=== PATIENT | female | born 1965 | race Asian ===

== ENCOUNTER 2024-02-24 08:15 | Outpatient (CLI) | payer OTHER ==
[2024-02-24] MEDS ORDERED: Iopamidol 370 76% 100 ML VIAL ONE (10:07)
== END 2024-02-24 08:16 | disposition home or self-care (01) ==
LOC: CT 08:15
PROVIDERS: ATTEND Internal Medicine Hematology & Oncology
DX: C50.412 Malignant neoplasm of upper-outer quadrant of left female breast (principal); C50.811 Malignant neoplasm of overlapping sites of right female breast; C50.812 Malignant neoplasm of overlapping sites of left female breast; J98.4 Other disorders of lung; K76.9 Liver disease, unspecified; K86.2 Cyst of pancreas
CPT/HCPCS: 36415; 70470; 71260; 74177; 82565; Q9967

== ENCOUNTER 2024-03-03 08:46 | Outpatient (CLI) | payer BC, OTHER | END 2024-03-03 08:47 | disposition home or self-care (01) | LOC: RAD 08:46 | PROVIDERS: ATTEND Surgery | DX: C50.412 Malignant neoplasm of upper-outer quadrant of left female breast (principal) | CPT/HCPCS: 78306; A9503 ==

== ENCOUNTER 2024-03-09 08:45 | Outpatient (CLI) | payer BC | END 2024-03-09 08:46 | disposition home or self-care (01) | LOC: PET 08:45 | PROVIDERS: ATTEND Internal Medicine Hematology & Oncology | DX: C50.811 Malignant neoplasm of overlapping sites of right female breast (principal); C50.812 Malignant neoplasm of overlapping sites of left female breast; C79.51 Secondary malignant neoplasm of bone; C78.1 Secondary malignant neoplasm of mediastinum; C78.00 Secondary malignant neoplasm of unspecified lung | CPT/HCPCS: 78815; A9552 ==

== ENCOUNTER 2024-06-03 10:15 | Outpatient (CLI) | payer BC | END 2024-06-03 10:16 | disposition home or self-care (01) | LOC: PET 10:15 | PROVIDERS: ATTEND Internal Medicine Hematology & Oncology | DX: C50.811 Malignant neoplasm of overlapping sites of right female breast (principal); C50.812 Malignant neoplasm of overlapping sites of left female breast; C79.51 Secondary malignant neoplasm of bone | CPT/HCPCS: 78815; A9552 ==